=== PATIENT | female | born 1950 | race Caucasian/White ===

== ENCOUNTER 2016-07-09 05:42 | Inpatient (IN) | payer BC, MEDICARE ==
[2016-07-04 16:50] LABS: BASOPHILS 0.6 %; BASOPHILS ABSOLUTE 0.03 10/3/uL (0.0-0.16); EOSINOPHILS 3.6 %; EOSINOPHILS ABSOLUTE 0.17 10/3/uL (0.0-0.53); HEMATOCRIT 38.3 % (36.0-48.0); HEMOGLOBIN 12.3 g/dL (12.0-16.0); IMMATURE GRANULOCYTES 0.2 %; IMMATURE GRANULOCYTES ABSOLUTE 0.01 10/3/uL (0.0-0.11); LYMPHOCYTES 32.3 %; LYMPHOCYTES ABSOLUTE 1.51 10/3/uL (0.67-4.30); MEAN CORPUS HGB CONC 32.1 g/dL (32.0-36.0); MEAN CORPUSCULAR HEMOGLOB 26.1 pg (26.0-34.0); MEAN CORPUSCULAR VOLUME 81.1 fL (80-100); MEAN PLATELET VOLUME 9.1 fL (9.2-13.0); MONOCYTES 9.6 %; MONOCYTES ABSOLUTE 0.45 10/3/uL (0.21-1.20); NEUTROPHILS 53.7 %; PLATELET COUNT 276 10/3/uL (150-400); RBC DISTRIBUTION WIDTH 16.5 % (12.0-16.0); RED CELL COUNT 4.72 10/6/uL (4.0-5.6); WHITE BLOOD CELLS 4.7 10/3/uL (4.5-10.5)
[2016-07-04 16:51] LABS: MANUAL DIFF NO %
[2016-07-04 16:57] LABS: INTERNATIONAL NORMAL RATI 1.1 UNITS (-); PROTIME (NOT ORD) 13.8 SEC (12.0-14.5)
[2016-07-04 16:58] LABS: PARTIAL THROMBO TIME 30.5 SEC (22.5-37.2)
[2016-07-04 17:09] LABS: A/G RATIO 1.1 (0.7-1.9); ALBUMIN 3.7 G/DL (3.5-5.0); ALKALINE PHOSPHATASE 45 U/L (45-117); BUN (BLOOD UREA NITROGEN) 29 MG/DL (6-23); CALCIUM, SERUM 9.7 MG/DL (8.5-10.4); CHLORIDE, SERUM 103 MMOL/L (96-112); CO2 (CARBON DIOXIDE) 25 MMOL/L (24-34); CREATININE 1.23 MG/DL (0.55-1.02); GFR AFRICAN AMERICAN 53 ML/MIN (>=60); GFR NON AFRICAN AMERICAN 46 ML/MIN (>=60); GLOBULIN 3.3 G/DL (2.5-4.1); GLUCOSE, SERUM 96 MG/DL (60-99); POTASSIUM, SERUM 4.4 MMOL/L (3.5-5.3); SGOT(AST) 20 U/L (5-40); SGPT(ALT) 22 U/L (5-65); SODIUM, SERUM 138 MMOL/L (135-148); TOTAL BILIRUBIN 0.4 MG/DL (0-1.2)
--- NOTE | ~2016-07-09 | HP ---
History And Physical [id number] [place]. [address] NAME: TRACEY BAIRD : 52 STATUS : ADM IN [facility]#: [id number] AGE: 66 ADM/REG DATE : 07/09/16 MR#: [id number] REPORT SERV DATE: 07/09/16 DICTATED BY: NOEL RIVERA III DATE: 07/09/16 REPORT STATUS : Draft TRANSCRIBED BY: MODJosé Miguel DATE: 07/09/16 DATE OF ADMISSION: 07/09/2016 CHIEF COMPLAINT: Right knee pain. HISTORY: The patient is a 66-year-old white female, who complains of pain in the right knee and has so for several years. It has gotten progressively worse in the last couple of years to point where she is having difficulty ambulating short distances. Complaining of rest pain, night pain, all unrelieved with nonsteroidal antiinflammatory medicines and intraarticular cortisone injections. She has had a series of 5 Supartz injections in 2006 with some relief of her arthritic pain. X-rays at this time reveal severe advanced osteoarthritis of her right knee with iecw-sg-[id number] deformity in the medial compartment and she is admitted for right total knee arthroplasty. Risks, benefits, and expected outcomes have been explained, but not limited to blood clots, infection, neurovascular injuries, patella maltracking problems, and component failures. PAST MEDICAL HISTORY: Significant for diabetes and high blood pressure. Otherwise, she denies any liver, lung, or kidney problems. PREVIOUS SURGERIES: Include gallbladder surgery and hysterectomy in 2008. MEDICATIONS: Please see the MAR. SOCIAL HISTORY: Nonsmoker and nondrinker. PHYSICAL EXAMINATION: GENERAL: She is alert and oriented x3. VITAL SIGNS: Stable. HEENT: Normocephalic, atraumatic. Pupils are equal, round, and reactive to light and accommodation. Extraocular muscles are intact. NECK: Supple. CHEST: Clear. HEART: Regular rate and rhythm without murmur. ABDOMEN: Benign. Soft. Nontender. Positive bowel sounds. ORTHOPEDIC: Examination reveals she is 5 feet 6 inches and 285 pounds. She lacks about 20 degrees of terminal extension, limited flexion about 110 degrees, varus alignment about 10 degrees, 2+ valgus stress, 1+ varus stress. Painful patellofemoral joint. Crepitation to range of motion. Tender to the medial joint line in the medial femoral condyle. No appreciable swelling. No effusion. No erythema. No warmth. IMAGING: X-rays reveal severe advanced osteoarthritis of the right knee with [id number] deformity in medial component with collapse and varus alignment with lateral tibial subluxation. PLAN: Admission for a right total knee arthroplasty. Risks, benefits, and expected outcomes have been explained. History And Physical [address] [address] NAME: TRACEY BAIRD : 52 STATUS : ADM IN [facility]#: [id number] AGE: 66 ADM/REG DATE : 07/09/16 MR#: [id number] REPORT SERV DATE: 07/09/16 DICTATED BY: NOEL RIVERA III DATE: 07/09/16 REPORT STATUS : Draft TRANSCRIBED BY: RUDDY DATE: 07/09/16 TB/RUDDY Noel Rivera III, M.D. / [id number] CC: Isabel Stephens III, PA-C
--- NOTE | ~2016-07-09 | OP ---
Record Of Operation [facility] [address] [place]. [address] NAME: TRACEY BAIRD : 52 STATUS : ADM IN PAT#: [id number] AGE: 66 ADM/REG DATE : 07/09/16 MR#: [id number] REPORT SERV DATE: 07/09/16 DICTATED BY: NOEL RIVERA III DATE: 07/09/16 REPORT STATUS : Draft TRANSCRIBED BY: MODL DATE: 07/09/16 DATE OF PROCEDURE: 07/09/2016 PREOPERATIVE DIAGNOSIS: Advanced tricompartmental osteoarthritis, right knee. POSTOPERATIVE DIAGNOSIS: Advanced tricompartmental osteoarthritis, right knee. SURGICAL PROCEDURE PERFORMED: Right total knee arthroplasty using the GOintegrouy Shake system, with a size 5 femoral component, size 5 tibial tray, a +6 polyethylene insert, with 35 mm patella, posterior stabilized design. SURGEON: Noel Rivera M.D. SYNTHETIC FILAMENT SPINNER: Ashley. ANESTHESIA: General. ANTIBIOTICS: Ancef 2 g. COMPLICATIONS: None. CRYSTALLOIDS: 1300 mL. ESTIMATED BLOOD LOSS: 75 mL. TOURNIQUET TIME: 45 minutes. Tranexamic acid 2 g. PROCEDURE IN DETAIL: The patient was brought to operative room, placed on the table in supine position, and general anesthesia was induced. 2 g was administered intravenously in the operating room. Pneumonic tourniquet was applied to right upper thigh and the right lower extremity was prepped and draped in the usual sterile fashion. It was exsanguinated with a 6-inch Esmarch. Tourniquet was inflated to 350 mmHg. Assuring good anesthesia, a standard midline incision was made directly over the right knee followed by a medial arthrotomy. The patella was an everted and the knee was flexed to 90 degrees. Medial and lateral menisci were debrided along the anterior cruciate ligament. A 5 mm step drill was used to enter the femoral canal and intramedullary guide was placed on 5 degrees valgus for right knee. This was pinned to the distal femur and the intramedullary guide was removed. The distal femoral cut was made with the oscillating saw removing 10 mm of distal femur, secondary to a flexion contracture. The distal femur was trialed to a size 5 femoral component, marked along the epicondylar axis. Multi-cutting guide was placed in these ambrose, pinned to the distal femur, and the anterior and posterior cuts were made along with the angled chamfer cuts. The intercondylar cutting guide was next centered and pinned to the distal femur. The reciprocating saw was used to make this cut for the posterior stabilized system. Trial reduction was carried out noting good cuts in all planes. Record Of Operation [facility] [address] [place]. [address] NAME: TRACEY BAIRD : 52 STATUS : ADM IN PAT#: [id number] AGE: 66 ADM/REG DATE : 07/09/16 MR#: [id number] REPORT SERV DATE: 07/09/16 DICTATED BY: NOEL RIVERA III DATE: 07/09/16 REPORT STATUS : Draft TRANSCRIBED BY: RUDDY DATE: 07/09/16 Attention was turned toward the tibial side. The external tibial cutting guide was aligned with the second metatarsal ray and pinned to the proximal tibia. Oscillating saw was used to make this cut with a neutral degree cutting block, taking more bone off the lateral side, secondary to a longstanding varus deformity. Trial reduction was carried out with a size 5 tibial baseplate and a +6 polyethylene insert. Ligamentous balancing was required for releasing the deep medial collateral ligament, secondary to longstanding varus deformity. Good extension was achieved to 0 degrees flexion of 125 to 130. Flexion extension gaps were symmetrical. The undersurface of the patella was then resurfaced by transecting 9 to 10 mm of bone. A 35 mm patellar template was used to place three anchor holes in the undersurface of the patella. 90 mL of meperidine was injected into the wound for postoperative pain control. The tibia were repaired with a drill and a punch. Two packs of methylmethacrylate were vacuum mixed, pressurized in the good dry cancellous bone. The real components were placed. Excess cement was removed. Tourniquet was released after 45 minutes. Bleeding was controlled with Bovie electrocautery. Thorough irrigation was carried out throughout the procedure with pulse lavage system. No drains were used. The medial arthrotomy was closed with #2 Ethibond suture and #1 Vicryl suture in 90 degree flexed position. Subcutaneous tissue was closed 2-0 Vicryl and skin was closed using running 4-0 Monocryl. Benzoin and Steri-Strips were applied, followed by sterile postoperative Aquacel dressing. The patient tolerated the procedure well and brought to recovery in satisfactory condition. There were no intraoperative, postoperative, or anesthetic complications. All instrument, needle, sponge, and lap counts were correct. TB/MODL Noel Rivera III, M.D. / [id number] CC: Isabel Stephens III, PA-C
[~2016-07-09 05:42] MED LIST: ACTOPLUS M15 MG/850 PO; ALFALFA PO; ASAB PO; AVANDAMET; CALCIUM PO; COMPAZINE; COZ50 PO; COZAAR; CRANBERRY PO; FISH OIL1200 MG; FLAXSEED OIL1000 MG PO; GLUCCHONDR PO; HYDROCHLOROT25 MG PO; INVOKANA100 MG PO; JANUVIA100 MG PO; LABETOLOL; LIPOTRIAD1 CAP PO; MOBIC15 MG PO; OXYCODONE PO; POTASSIUM CITRATE PO; PROCHLORPERAZINE; RESVERATROL PO; STOOL SOFTENER; TRANDAT100 PO; TURMERIC PO; VITAMIN D1000 UNI1 PO; VITAMIN D31000 UNIT PO; VITE PO; ZINC PO; [UNRECOGNIZED DRUG - OTHER] PO
[2016-07-09 07:19] LABS: ASCORBIC ACID (UR NOT ORDER) NEG (NEG); BILIRUBIN, URINE NEGATIVE (NEG); KETONE, URINE NEGATIVE (NEG); LEUKOCYTE ESTERASE(NOT OR TRACE (NEG); WBC (NOT ORDERED) (RFLEX) 7 (0-5)
[2016-07-10 05:03] LABS: HEMATOCRIT 33.7 % (36.0-48.0); HEMOGLOBIN 10.9 g/dL (12.0-16.0)
[2016-07-11 04:15] LABS: HEMATOCRIT 33.5 % (36.0-48.0); HEMOGLOBIN 10.8 g/dL (12.0-16.0)
[2016-07-11] MEDS ORDERED: PERCOCET 10/3251 TAB PO (11:39)
[2016-07-11] MEDS ORDERED: ELIQUIS 2.5 MG2.5 MG PO (11:39)
== END 2016-07-11 17:30 | disposition home or self-care (01) | DRG 470 ==
LOC: SDC/OF 05:42 → PACU 10:40 → 3SO 11:59
PROVIDERS: Orthopaedic Surgery
PROC: 0SRC0J9 Replacement of Right Knee Joint with Synthetic Substitute, Cemented, Open Approach (ICD-10-PCS; principal; 2016-07-09 07:30)
DX: M17.11 Unilateral primary osteoarthritis, right knee (principal)
CPT/HCPCS: 36415; 71020; 80053; 81001; 82962; 85014; 85018; 85025; 85610; 85730; 86850; 86900; 86901; 87641; 88305; 88311; 93005; 97110-GP; 97116-GP; 97161-GP; 97165-GO; A9270-GY; C1776; G8978-CK-GP; G8979-CI-GP; J0330; J0690; J1170; J1885; J2250; J2270; J2405; J2710; J2795; J3010

== ENCOUNTER 2016-07-17 16:41 | Emergency (ER) | payer BC, MEDICARE ==
[~2016-07-17 16:41] MED LIST changes: +ELIQUIS 2.5 MG2.5 MG PO; +PERCOCET 10/3251 TAB PO
[2016-07-17 17:46] LABS: BASOPHILS 0.4 %; BASOPHILS ABSOLUTE 0.02 10/3/uL (0.0-0.16); EOSINOPHILS 2.2 %; ER CBC TAT 0 Hrs 05 Mins; HEMATOCRIT 33.2 % (36.0-48.0); HEMOGLOBIN 10.4 g/dL (12.0-16.0); IMMATURE GRANULOCYTES 1.1 %; IMMATURE GRANULOCYTES ABSOLUTE 0.05 10/3/uL (0.0-0.11); LYMPHOCYTES 29.5 %; LYMPHOCYTES ABSOLUTE 1.34 10/3/uL (0.67-4.30); MEAN CORPUS HGB CONC 31.3 g/dL (32.0-36.0); MEAN CORPUSCULAR HEMOGLOB 25.6 pg (26.0-34.0); MEAN CORPUSCULAR VOLUME 81.8 fL (80-100); MEAN PLATELET VOLUME 8.6 fL (9.2-13.0); MONOCYTES 10.1 %; MONOCYTES ABSOLUTE 0.46 10/3/uL (0.21-1.20); NEUTROPHILS 56.7 %; NEUTROPHILS ABSOLUTE 2.57 10/3/uL (2.02-8.40); RBC DISTRIBUTION WIDTH 15.8 % (12.0-16.0); RED CELL COUNT 4.06 10/6/uL (4.0-5.6); WHITE BLOOD CELLS 4.5 10/3/uL (4.5-10.5)
[2016-07-17 17:49] LABS: MANUAL DIFF NO %; PLATELET COUNT 362 10/3/uL (150-400)
[2016-07-17 17:57] LABS: INTERNATIONAL NORMAL RATI 1.2 UNITS (-); PARTIAL THROMBO TIME 31.8 SEC (22.5-37.2); PROTIME (NOT ORD) 14.7 SEC (12.0-14.5)
[2016-07-17 17:59] LABS: D-DIMER QUANTITATIVE 2.76 ug/mLFEU (< 0.50)
[2016-07-17 18:03] LABS: BUN (BLOOD UREA NITROGEN) 19 MG/DL (6-23); CALCIUM, SERUM 9.9 MG/DL (8.5-10.4); CHEST PAIN PROFILE TAT 0 Hrs 22 Mins; CHLORIDE, SERUM 99 MMOL/L (96-112); CO2 (CARBON DIOXIDE) 31 MMOL/L (24-34); CREATININE 1.05 MG/DL (0.55-1.02); GFR AFRICAN AMERICAN 65 ML/MIN (>=60); GFR NON AFRICAN AMERICAN 56 ML/MIN (>=60); GLUCOSE, SERUM 118 MG/DL (60-99); POTASSIUM, SERUM 4.6 MMOL/L (3.5-5.3); SODIUM, SERUM 137 MMOL/L (135-148); TROPONIN I <0.02 NG/ML (<0.05)
[2016-07-17 19:57] LABS: ASCORBIC ACID (UR NOT ORDER) NEG (NEG); BILIRUBIN, URINE NEGATIVE (NEG); ER URINALYSIS TAT 0 Hrs 18 Mins; KETONE, URINE NEGATIVE (NEG); LEUKOCYTE ESTERASE(NOT OR SMALL (NEG); NITRITE (URINE) NEG (NEG); WBC (NOT ORDERED) (RFLEX) 12 (0-5)
== END 2016-07-18 00:30 | disposition left against medical advice (07) ==
LOC: ER 16:41
PROVIDERS: Emergency Medicine
DX: R06.00 Dyspnea, unspecified (principal); R60.0 Localized edema; Z96.651 Presence of right artificial knee joint; I10 Essential (primary) hypertension; E11.9 Type 2 diabetes mellitus without complications; Z88.2 Allergy status to sulfonamides; Z88.8 Allergy status to other drugs, medicaments and biological substances; Z79.899 Other long term (current) drug therapy
CPT/HCPCS: 71010; 80048; 81001; 83735; 83880; 84484; 85025; 85379; 85610; 85730; 87077; 87086; 87186; 93005; 93971; 99285